=== PATIENT | female | born 1970 | race Caucasian/White ===

== ENCOUNTER 2021-10-12 16:12 | Outpatient (REF) | payer BC, SELFPAY ==
--- NOTE | ~2021-10-12 | MM_ITS ---
EXAMINATION: MM SCREENING DIGITAL BREAST TOMOSYNTHESIS, BILATERAL CLINICAL INFORMATION: Screening. Asymptomatic. The lifetime risk of breast cancer based on the Tyrer-Cuzick Model is 10%. COMPARISON: Mammography: 12/19/2017, 02/24/2013 TECHNIQUE: Digital breast tomosynthesis is performed in both the craniocaudal and mediolateral oblique views along with computer-aided detection (CAD). Synthesized 2D images are generated from the tomosynthesis. FINDINGS: There are scattered areas of fibroglandular density (ACR BI-RADS breast composition Category b). There are no significant masses, abnormal calcifications, or other abnormalities. Parenchymal pattern is similar to prior studies. No developing density. No significant change. MM/MM tomosynthesis screening BI IMPRESSION: No mammographic evidence of malignancy. ASSESSMENT: BI-RADS 1: Negative RECOMMENDATION: Routine annual mammography screening. This patient's information was entered into a reminder system with a target due date for their next mammogram.
== END 2021-10-12 16:13 | disposition home or self-care (01) ==
LOC: HO.MAMMO 16:12
PROVIDERS: Visit Provider Physician Assistant
DX: Z12.31 Encounter for screening mammogram for malignant neoplasm of breast (principal)
CPT/HCPCS: 77063; 77067

== ENCOUNTER 2022-02-07 16:11 | Outpatient (REF) | payer BC, SELFPAY ==
[2022-02-12 20:42] LABS: HPV mRNA E6/E7 rflx Not Detected (Not Detected)
== END 2022-02-07 16:12 | disposition home or self-care (01) ==
LOC: HO.LNP 16:11
PROVIDERS: Visit Provider Advanced Practice Midwife
DX: Z01.419 Encounter for gynecological examination (general) (routine) without abnormal findings (principal); Z11.51 Encounter for screening for human papillomavirus (HPV); N92.0 Excessive and frequent menstruation with regular cycle
CPT/HCPCS: 87624; 88142

== ENCOUNTER 2022-02-07 16:24 | Outpatient (REF) | payer BC, SELFPAY ==
[2022-02-07 17:03] LABS: Hematocrit 23.5 % (37.0-47.0); Mean Corpuscular HGB Conc 29.8 g/dl (31.0-35.0); Mean Corpuscular Volume 83.9 fL (80.0-98.0); Mean Platelet Volume 9.6 fL (9.4-12.3); Platelet Count 478 X10*3/uL (160-400); Red Cell Distribution Width 15.3 % (11.0-16.0); White Blood Count 5.9 X10*3/uL (4.8-10.8)
[2022-02-07 17:28] LABS: HCG Quantitative < 2 mIU/mL
[2022-02-08 06:21] LABS: CT PCR NOT DETECTED (Not Detect.); NG PCR NOT DETECTED (Not Detect.)
[2022-02-08 10:27] LABS: BV Int Neg Control Negative (Negative); BV Int Pos Control Positive (Positive)
== END 2022-02-07 16:25 | disposition home or self-care (01) ==
LOC: HO.LAB 16:24
PROVIDERS: Visit Provider Advanced Practice Midwife
DX: N92.1 Excessive and frequent menstruation with irregular cycle (principal); N93.9 Abnormal uterine and vaginal bleeding, unspecified; Z20.2 Contact with and (suspected) exposure to infections with a predominantly sexual mode of transmission; N90.1 Moderate vulvar dysplasia
CPT/HCPCS: 84443; 84702; 85027; 87480; 87491; 87510; 87591; 87660

== ENCOUNTER 2022-02-07 19:04 | Emergency (ER) | payer BC, SELFPAY | END 2022-02-07 21:03 | disposition left against medical advice (07) | PROVIDERS: Emergency Provider Emergency Medicine | DX: D64.9 Anemia, unspecified (principal) ==

== ENCOUNTER 2022-02-08 09:14 | Emergency (ER) | payer BC, SELFPAY ==
[2022-02-08] VITALS (9 sets, daily range): BP systolic 100–138; BP diastolic 56–86; PULSE 68–74; RESP 12–19; TEMP 36.6–37; O2SAT 94–100; BMI 31.2
[2022-02-08 10:43] LABS: MANUAL DIFF FLAG NO
[2022-02-08 10:44] LABS: Basophils Percent Auto 0.7 % (0-2); Eosinophils Absolute Auto 0.1 X10*3/uL (0.0-0.4); Eosinophils Percent Auto 3.1 % (0-4); Hematocrit 23.8 % (37.0-47.0); Imm Gran Abs Auto 0.01 X10*3/uL (0.00-0.03); Imm Gran Pct Auto 0.2 % (0.0-0.4); Lymphocytes Absolute Auto 1.3 X10*3/uL (1.2-4.9); Lymphocytes Percent Auto 27.4 % (20-40); Mean Corpuscular HGB Conc 29.4 g/dl (31.0-35.0); Mean Corpuscular Hemoglobin 24.7 pg (27.0-33.0); Mean Corpuscular Volume 84.1 fL (80.0-98.0); Mean Platelet Volume 8.6 fL (9.4-12.3); Monocytes Absolute Auto 0.4 X10*3/uL (0.1-1.2); Monocytes Percent Auto 8.3 % (2-11); Neutrophils Absolute Auto 2.8 x10*3/uL (2.0-8.3); Neutrophils Percent Auto 60.3 % (45-73); Platelet Count 419 X10*3/uL (160-400); Red Blood Count 2.83 X10*6/uL (4.20-5.50); Red Cell Distribution Width 15.2 % (11.0-16.0); White Blood Count 4.6 X10*3/uL (4.8-10.8)
[2022-02-08 11:00] LABS: Anion Gap 11 (12-20); Blood Urea Nitrogen 9 mg/dL (9-16); Calcium 8.6 mg/dL (8.4-10.2); Carbon Dioxide 25 mmol/L (22-29); Chloride 109 mmol/L (96-108); Creatinine Clr Calc Pharmacy 89.3; Estimated Glomerular Filt Rate > 60; Glucose Random 96 mg/dL (60-115); Potassium 4.6 mmol/L (3.3-5.1); Sodium 140 mmol/L (135-145)
--- NOTE | 2022-02-08 11:45 | ED.RECABL ---
HPI - Recheck/Abnormal Lab/Rx General Chief Complaint: Recheck/Abnormal Lab/Rx Stated Complaint: blood transfusion/sent by obgyn Time Seen by Provider: 02/08/22 11:08 Source: patient Mode of arrival: ambulatory Limitations: no limitations History of Present Illness HPI narrative: 52-year-old female who presents emergency department for evaluation of low hemoglobin and hematocrit. The patient was seen by her certified nurse commission for the blind director, Marlys Mari yesterday on 02/07/2022 for abnormal uterine bleeding with heavy menstruation. The patient had lab work drawn yesterday and was started on medroxyprogesterone 10 mg daily for her abnormal uterine bleeding. The patient was contacted today and informed that her H&H was low and that she should go to the emergency department for evaluation. The patient's H&H yesterday was 7.0 in 23.5. The patient states that she was getting monthly menstrual periods in the past however she had no menstrual period for approximately 5 months. She states that she started this menstrual period on 12/11/2021 and has been bleeding continually since then. Patient states that she soaks through 5 pads per day. She states that over the last month she has been feeling tired, weak and dizzy. She states that whenever she walks up stairs she developed a rapid heart rate and palpitations. Patient states that she was taking an iron supplement once a day. complaint: abnormal lab Initial visit (ago): day(s) (Yesterday) Returns today for: other (Severe anemia) Associated symptoms: shortness of breath (Dyspnea on exertion) and other (Weakness, fatigue, lightheadedness) Related Data Home Medications Medication Instructions Recorded Confirmed citalopram 40 mg tablet (Celexa) 40 mg PO DAILY 02/07/22 Previous Rx's Medication Instructions Recorded medroxyprogesterone 10 mg tablet 10 mg PO DAILY 30 days #30 tabs 02/07/22 (Provera) Allergies Allergy/AdvReac Type Severity Reaction Status Date / Time No Known Allergies Allergy Mild UNKNOWN Verified 02/07/22 15:43 Review of Systems Review of Systems: Yes all other systems are reviewed and are negative [facility] Past Medical History [facility] Narrative: Past medical history: Anxiety. Past surgical history: and tonsillectomy. Social history: She denies tobacco, alcohol and drug use. Medical History History of anxiety Surgical History Hx of section Hx of tonsillectomy Social History Social History Alcohol intake: never Patient Tobacco Use Status: Never used Tobacco Sexual orientation: Straight/Heterosexual Gender identity: Female Physical Exam Vital Signs: Vital Signs: Last Vital Signs Temp 98.6 F 02/08/22 15:22 Pulse 71 02/08/22 15:22 Resp 17 02/08/22 15:22 BP 126/74 02/08/22 15:22 Pulse Ox 94 02/08/22 14:35 O2 Del Method 02/08/22 14:35 BMI result Body Mass Index 31.2 Const: General: cooperative and no acute distress Orientation/consciousness: oriented to person and oriented to place Limitations: no limitations HEENT: Head: Yes normal to inspection, Yes normocephalic and Yes atraumatic Ears: external ears normal General nose exam: Normal external nose present Face and sinus: Yes normal facial exam Mouth: Normal oral and palatal mucosa present Throat: Yes posterior oropharynx normal Eyes: General: appearance normal, both eyes and all related structures Pupils: Equal, round and reactive pupils present Neck: Neck: Yes normal visual inspection, Yes no lymphadenopathy, Yes trachea midline and Yes supple Chest: Chest palpation & inspection: normal inspection of the chest and normal palpation of entire chest wall Resp: Effort & Inspection: normal respiratory effort and able to speak in complete sentences Auscultation: clear to auscultation bilaterally Cardio: Rate: regular rate Rhythm: regular rhythm Heart sounds: S1 normal heart sound present, S2 normal heart sound present and no murmurs GI: Inspection: Yes normal to inspection Palpation (GI): Soft to palpation, nontender and no guarding Auscultation: normal bowel sounds : General: Yes no CVA tenderness Back/Spine/Pelvis: Back: no CVA tenderness Skin: General skin exam: no rashes or lesions noted Neuro: General: oriented to person and oriented to place Cranial nerves: Yes CN's II-XII intact bilaterally and Yes Equal, round and reactive pupils present Cognition (Neuro): normal cognition Motor exam (neuro): 5/5 motor strength present throughout Extrem: General: Yes normal to inspection Psych: Appearance: grossly normal Speech and movement: Normal speech and movement present Affect: normal affect Attitude: cooperative Thought process: Normal thought process present Thought content: Normal thought content present Course Course Course Narrative: 52-year-old female who presents emergency department for evaluation of abnormal blood work (severe anemia) detected on blood work that was done yesterday for a workup of abnormal uterine bleeding with heavy menstruation over a 2 month. Patient's physical examination today was unremarkable. Patient's repeat H&H was 723.8 which confirms that she is anemic. She had a normal MCV but I do believe that her anemia is caused by menstrual blood loss and iron deficiency. I did discuss this with the patient. Patient was ordered to get transfused 2 units of packed red blood cells, each unit over 2 hours. The patient will then be discharged on iron 3 times a day for 2 months. She will need follow with her PCP to follow her anemia. 1603: The patient completed her 1st unit of packed red blood cells and she is feeling better. She is currently getting her 2nd unit of packed red blood cells. Once this is completed she will be discharged home with printed and verbal instructions. MDM - Recheck/Abnormal Lab/Rx Lab Data Result diagrams: 02/08/22 10:38 02/08/22 10:38 Labs: Lab Results 02/08/22 02/08/22 02/08/22 Range/Units 10:38 10:38 11:38 WBC 4.6 L (4.8-10.8) X10*3/uL RBC 2.83 L (4.20-5.50) X10*6/uL Hgb 7.0 L* (12.0-16.0) g/dl Hct 23.8 L (37.0-47.0) % MCV 84.1 (80.0-98.0) fL MCH 24.7 L (27.0-33.0) pg MCHC 29.4 L (31.0-35.0) g/dl RDW 15.2 (11.0-16.0) % Plt Count 419 H (160-400) X10*3/uL MPV 8.6 L (9.4-12.3) fL Immature Gran % (Auto) 0.2 (0.0-0.4) % Neut % (Auto) 60.3 (45-73) % Lymph % (Auto) 27.4 (20-40) % Vernon % (Auto) 8.3 (2-11) % Eos % (Auto) 3.1 (0-4) % Baso % (Auto) 0.7 (0-2) % Lymph # (Auto) 1.3 (1.2-4.9) X10*3/uL Vernon # (Auto) 0.4 (0.1-1.2) X10*3/uL Eos # (Auto) 0.1 (0.0-0.4) X10*3/uL Baso # (Auto) 0.0 (0.0-0.2) X10*3/uL Abs Immat Gran (auto) 0.01 (0.00-0.03) X10*3/uL Absolute Neuts (auto) 2.8 (2.0-8.3) x10*3/uL Absolute Nucleated RBC 0.000 (0.0-0.012) X10*3/uL Nucleated RBC % (auto) 0.0 (0.0-0.2) /100WBC Sodium 140 (135-145) mmol/L Potassium 4.6 (3.3-5.1) mmol/L Chloride 109 H (96-108) mmol/L Carbon Dioxide 25 (22-29) mmol/L Anion Gap 11 L (12-20) BUN 9 (9-16) mg/dL Creatinine 0.67 (0.5-1.4) mg/dL Estim Creat Clear Calc 89.3 Estimated GFR > 60 Random Glucose 96 (60-115) mg/dL Calcium 8.6 (8.4-10.2) mg/dL Blood Type A Negative Antibody Screen NEGATIVE Crossmatch See Detail Discharge Plan Discharge Clinical Impression: Anemia, Dysfunctional uterine bleeding Patient Disposition: Home, Self-Care Instructions: Iron Deficiency Anemia (ED) Additional Instructions: Your hematocrit and hemoglobin were low. Your hemoglobin was 7 (normal range 12 to 16). Your hematocrit was 23.8 % (normal range 37-47%). The most likely cause of your anemia was blood loss from your dysfunctional uterine bleeding. When you lose a lot of blood over a period of time, this make you iron deficient and without iron your body cannot make new red blood cells. When your body is iron deficient you often need a higher dose of iron inorder to replete the iron stores so your body so that your bone marrow can make more red blood cells. Take ferrous sulfate 325 mg pills, 1 pill 3 times a day for 2 months. Continue to take the medroxyprogesterone prescribed by your mixing pan tender provider and follow-up with this provider as scheduled Please return to the emergency department if your symptoms get worse or if you develop any symptoms that are concerning to you. Prescriptions: No Action medroxyprogesterone [Provera] 10 mg tablet 10 mg PO DAILY 30 Days Qty: 30 3RF Rx Instructions: start Provera 1 tablet daily citalopram [Celexa] 40 mg tablet 40 mg PO DAILY
--- NOTE | 2022-02-12 14:53 | PC.NURSE ---
Blood transfusion ended at around 1720. Vital signs documented
== END 2022-02-08 18:01 | disposition home or self-care (01) ==
PROVIDERS: Emergency Provider Emergency Medicine Emergency Medical Services
DX: D64.9 Anemia, unspecified (principal); N93.8 Other specified abnormal uterine and vaginal bleeding; Z79.899 Other long term (current) drug therapy
CPT/HCPCS: 36415; 80048; 85025; 86850; 86900; 86901; 86923; 99284; 99285; P9016

== ENCOUNTER 2022-02-12 11:07 | Outpatient (REF) | payer BC, SELFPAY ==
--- NOTE | ~2022-02-12 | US_ITS ---
EXAMINATION: US PELVIS CLINICAL INFORMATION: N92.0 - Excessive and frequent menstruation with regular cycle. Age 52. LMP 12/11/2021 (heavy and ongoing since). COMPARISON: Pelvic ultrasound 05/04/2019 TECHNIQUE: Ultrasound of the pelvis is performed using both transabdominal and transvaginal transducers along with Doppler. Transvaginal imaging is performed due to inadequate visualization transabdominally. FINDINGS: Uterus: The uterus is anteverted and measures 9.8 x 4.9 x 6.7 cm. Volume 168 mL. The double wall endometrial thickness ranges 1.2-1.5 cm. The posterior side of the endometrium is heterogeneous and there is some increased color flow noted in this area. This could suggest underlying polyp. The uterine surface is smooth. There is no visible fibroid. A nabothian cyst in the cervix measures 1.0 x 0.6 cm. Adnexa: Both ovaries are visualized. There is normal color flow to the adnexa. There is no ovarian torsion. There is no pelvic ascites or fluid collection. Right ovary measures 3.4 x 1.7 x 2.2 cm. Volume 7.0 mL. Dominant follicle in right ovary measures under 1.5 cm. Left ovary measures 2.9 x 1.6 x 1.8 cm. Volume 4.5 mL. US/US pelvic and transvaginal IMPRESSION: Uterus: -Endometrial double wall thickness 1.2-1.5 cm. Posterior side heterogeneous with increased color flow. Possibility of an underlying polyp cannot be excluded. -No visible fibroid. Adnexa: -No adnexal mass or ascites. Dominant follicle on right under 1.5 cm.
[2022-02-12 12:08] LABS: Hematocrit 33.3 % (37.0-47.0); Hemoglobin 10.5 g/dl (12.0-16.0); Mean Corpuscular HGB Conc 31.5 g/dl (31.0-35.0); Mean Corpuscular Hemoglobin 26.9 pg (27.0-33.0); Mean Corpuscular Volume 85.4 fL (80.0-98.0); Mean Platelet Volume 9.7 fL (9.4-12.3); Platelet Count 470 X10*3/uL (160-400); Red Cell Distribution Width 15.5 % (11.0-16.0); White Blood Count 5.6 X10*3/uL (4.8-10.8)
== END 2022-02-12 11:08 | disposition home or self-care (01) ==
LOC: HO.US 11:07
PROVIDERS: PCP Obstetrics & Gynecology; Visit Provider Advanced Practice Midwife
DX: R93.9 Diagnostic imaging inconclusive due to excess body fat of patient (principal); R92.0 Mammographic microcalcification found on diagnostic imaging of breast
CPT/HCPCS: 36415; 76830; 76856; 85027

== ENCOUNTER 2022-02-13 12:23 | Day surgery (SDC) | payer BC, SELFPAY ==
[2022-02-13] VITALS (11 sets, daily range): BP systolic 96–161; BP diastolic 62–88; PULSE 61–76; RESP 16–22; TEMP 36.2–37.1; O2SAT 98–100; BMI 31.2
--- NOTE | 2022-02-13 13:27 | MHC.SHP ---
Pre-Procedural Eval Section A Date of Service: 02/13/22 The patient is an INPATIENT: No Changes since office visit: No Cold of Flu in the past 2 weeks, No New Medical Problems, No Changes in Medication and No Patient answered all questions The History & Physical has been completed within 30 days and I have reviewed it.: Yes Section B Chief Complaint: Abnormal uterine and vaginal bleeding, unspecified Allergies: Allergies Allergy/AdvReac Type Severity Reaction Status Date / Time No Known Allergies Allergy Mild UNKNOWN Verified 02/13/22 12:35 Plan Diagnosis/Plan: Unchanged I have reviewed the history and physical and performed a pertinent physical examination on my patient. No changes have occurred unless specified.
[2022-02-13 13:29] LABS: UPreg QC Valid YES; Urine Pregnancy NEGATIVE (NEGATIVE)
--- NOTE | 2022-02-13 13:31 | P.CONAN_ITS ---
[facility] Active Problems Active Problems: All Active Problems (Updated 02/12/22 @ 13:06 by He Lackey MD) Heavy menstrual bleeding (Acute) Abnormal uterine bleeding (AUB) (Acute) Encounter for annual routine gynecological examination (Acute) Past Medical History Medical History History of anxiety Surgical History Surgical History Hx of section Hx of tonsillectomy History of Problems with Anesthesia: No Social History Social History Alcohol intake: never Patient Tobacco Use Status: Never used Tobacco Use of substances other than those prescribed or required for medical reasons: Yes Substance Use Frequency: Occasionally Are you DNR?: No Advance Directives: No Advance Directives Information Provided: Yes Sexual orientation: Straight/Heterosexual Gender identity: Female Meds Allergies Allergy/AdvReac Type Severity Reaction Status Date / Time No Known Allergies Allergy Mild UNKNOWN Verified 02/13/22 12:35 Home Medications Medication Instructions Recorded Confirmed Last Taken Type citalopram 40 mg tablet (Celexa) 40 mg PO DAILY 02/07/22 02/13/22 Unknown History iron 1 tab PO TID 02/13/22 02/13/22 02/12/22 History Exam Exam Date and Time: February 13, 2022 1331 Height,Weight and Vital Signs: Height 5 ft Weight 72.575 kg Last Vital Signs Temp 98.7 F 02/13/22 12:41 Pulse 75 02/13/22 12:41 Resp 16 02/13/22 12:41 BP 113/62 02/13/22 12:41 Pulse Ox 99 02/13/22 12:41 O2 Del Method 02/13/22 12:41 Pertinent Lab Results Pertinent Lab Results: Laboratory Tests 02/13/22 13:12 Urine Test NEGATIVE Airway Mallampati Class: II (Small mouth) TM Dist: >3cm Neck ROM: Full Loose/Missing/Broken Teeth: No Heart: RRR Lungs: CYA Assessment and Plan Assessment Anesthesia Assessment: Anesthesia Plan Discussed and Chart Reviewed Final Anesthetic Review History of Problems with Anesthesia: No NPO: Yes ASA Class: II Final Preanesthetic Review: Meds/Allgs Chart Reviewed, Consent Obtained/Reviewed and Anes Risks/Benef Reviewed Patient Risk: Low Procedure Risk: Low Anesthetic Plan Anesthetic Plan: GA Disposition: Standard PACU
[2022-02-13] MEDS: Lactated Ringers 1,000 ML 50 ML IVCONT (14:21)
--- NOTE | 2022-02-13 14:34 | PM.OP ---
Brief Operative Note Date of Service: 02/13/22 Pre-op diagnosis: Abnormal uterine bleeding Post-op diagnosis: same (Normal endometrial cavity) Procedure: Hysteroscopy D&C, Mirena IUD insertion Surgeon: He Lackey MD Anesthesia: GLMA Was an Development Coordinator used for this Procedure?: No Estimated blood loss (mL): 0 Pathology: other (Endometrial Scrapping. ) Condition: stable Disposition: PACU
--- NOTE | 2022-02-13 14:35 | P.OP_ITS ---
Operative Note Operative Note Date of Service: 02/13/22 Narrative: Preop Diagnosis: Abnormal uterine bleeding Operation: Diagnostic Hysteroscopy, Dilataion & Curettage , Mirena IUD insertion Post Op Diagnosis: Normal endometrial and endocervical cavity, no evidence of pathology QBL: Minimal Anesthesia: GLMA Surgeon: He Lackey MD Business Continuity Analyst: None Complication: None Pathology: Endometrial Scrapings Procedure: The patient was put in the dorsal lithotomy position, scrubbed, and draped in the usual manner. A sterile speculum was inserted in the patient's vagina. The anterior lip of the cervix was grasped with a single tooth tenaculum. The cervix was dilated up to 5 mm, then the scope was inserted in the patient's uterus. Inspection revealed normal endocervical & endometrial cavity with no evidence of pathology. The scope was taken out of the uterine cavity , then sharp curetting was carried on with no complications. A sound was advanced through the external and internal os until it reached the fundus of the uterus, the depth was 9 cm. The sound was then withdrawn. The IUD was loaded in a sterile manner and advanced into position. The string was visualized and cut to 3 cm. Tenaculum site hemostatic. At the end of the procedure, all instruments were taken out of the patient uterine and vaginal cavity. The single tooth tenaculum was removed and homeostasis was assured using pressure. The patient tolerated the procedure well and was transferred to the PACU in a stable condition.
[2022-02-13] MEDS: oxyCODONE HCl Immed Release 5 MG TABLET PO (15:04)
[2022-02-13] MEDS: ondansetron HCL 4 MG/2 ML VIAL IVPUSH (15:14)
[2022-02-13] MEDS: fentaNYL citrate/PF 100 MCG/2 ML VIAL 25 MCG IVPUSH (15:40)
== END 2022-02-13 17:00 | disposition home or self-care (01) ==
PROVIDERS: Visit Provider Obstetrics & Gynecology
PROC: 0UDB8ZZ Extraction of Endometrium, Via Natural or Artificial Opening Endoscopic (ICD-10-PCS; CPT 58558; principal; 2022-02-13 14:00)
DX: N93.9 Abnormal uterine and vaginal bleeding, unspecified (principal); N88.8 Other specified noninflammatory disorders of cervix uteri
CPT/HCPCS: 58558; 58300; 81025; 88305; J1100; J1885; J2250; J2405; J2550; J3010

== ENCOUNTER 2022-03-13 08:21 | Outpatient (REF) | payer BC, SELFPAY | END 2022-03-13 08:22 | disposition home or self-care (01) | LOC: HO.LNP 08:21 | PROVIDERS: Visit Provider Obstetrics & Gynecology | DX: R87.615 Unsatisfactory cytologic smear of cervix (principal); Z32.02 Encounter for pregnancy test, result negative; Z30.431 Encounter for routine checking of intrauterine contraceptive device | CPT/HCPCS: 81025; 88142 ==

== ENCOUNTER 2022-05-27 11:38 | Outpatient (REF) | payer BC, SELFPAY ==
[2022-05-27 11:58] LABS: Hematocrit 45.8 % (37.0-47.0); Hemoglobin 15.4 g/dl (12.0-16.0); Mean Corpuscular HGB Conc 33.6 g/dl (31.0-35.0); Mean Corpuscular Hemoglobin 28.9 pg (27.0-33.0); Mean Corpuscular Volume 85.9 fL (80.0-98.0); Mean Platelet Volume 9.2 fL (9.4-12.3); Platelet Count 317 X10*3/uL (160-400); Red Blood Count 5.33 X10*6/uL (4.20-5.50); Red Cell Distribution Width 15.5 % (11.0-16.0); White Blood Count 6.9 X10*3/uL (4.8-10.8)
== END 2022-05-27 11:39 | disposition home or self-care (01) ==
LOC: HO.LAB 11:38
PROVIDERS: Visit Provider Obstetrics & Gynecology
DX: N93.9 Abnormal uterine and vaginal bleeding, unspecified (principal)
CPT/HCPCS: 36415; 85027

== ENCOUNTER → 2022-05-30 13:58 | Outpatient (BNVA) | payer BC, SELFPAY | PROVIDERS: Visit Provider Obstetrics & Gynecology | DX: Z13.89 Encounter for screening for other disorder (principal) ==

== ENCOUNTER 2023-05-20 10:13 | Outpatient (REF) | payer BC, SELFPAY | END 2023-05-20 10:14 | disposition home or self-care (01) | LOC: HO.MAMMO 10:13 | PROVIDERS: Visit Provider Obstetrics & Gynecology | DX: Z12.31 Encounter for screening mammogram for malignant neoplasm of breast (principal) | CPT/HCPCS: 77063; 77067 ==

== ENCOUNTER → 2023-05-20 10:15 | Outpatient (BNV) | payer BC, SELFPAY | PROVIDERS: Visit Provider Radiology Diagnostic Radiology | DX: Z12.31 Encounter for screening mammogram for malignant neoplasm of breast (principal) | CPT/HCPCS: 77063; 77067 ==

== ENCOUNTER 2023-05-20 10:46 | Outpatient (AMB) | payer BC, SELFPAY ==
--- NOTE | 2023-05-20 11:02 | A.OFFVIS_ITS ---
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 No complaints. 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 Sexually active: Yes Sexual orientation: Straight/Heterosexual Gender identity: Female Female Reproductive History Menstrual Total pregnancies: 2 Full term: 2 Number of Living Children: 2 Date of last pap smear: 03/14/22 Date of Mammogram: 05/20/23 Review of Systems Const All systems reviewed & are unremarkable except as noted in HPI and below Card Reports as per HPI Resp Reports as per HPI GI Reports as per HPI and Reports no additional complaints Reports as per HPI Physical Exam Vital Signs: Last Vital Signs BP 120/74 05/20/23 11:03 BMI result Body Mass Index 33.2 Const General: cooperative, healthy appearing and comfortable Chest Chest palpation & inspection: normal inspection of the chest and normal palpation of entire chest wall Breast/axilla inspection: normal inspection of the breasts and normal inspection of the axillae Breast/axilla palpation: normal palpation of the breasts, normal palpation of the axillae and no axillary lymphadenopathy Resp Effort & Inspection: normal respiratory effort Auscultation: clear to auscultation bilaterally Percussion: percussion normal Cardio Palpation: normal PMI Rate: regular rate Rhythm: regular rhythm Heart sounds: no murmurs and no rubs Peripheral pulses: Peripheral pulses 2+ throughout GI Inspection: Yes normal to inspection Palpation (GI): Soft to palpation, nontender, no guarding, not rigid and No hepatosplenomegaly present Percussion: Yes normal to percussion Auscultation: normal bowel sounds Rectal Exam - Female: deferred General: Yes bladder normal to palpation External Female Exam: No lesion Speculum Exam - Vagina: normal appearance of the vagina, normal palpation, normal vaginal discharge and not erythematous Speculum Exam - Cervix: normal appearance of the cervix and normal palpation Bimanual exam- vagina & uterus: normal bimanual exam, normal palpation, uterine size normal, bladder normal to palpation, consistency normal and normal palpation Bimanual Exam- Adnexa, other: normal adnexae, no masses and no tenderness Assessment & Plan Assessment & Plan (1) Well woman exam: Code(s): Z01.419 - Encounter for gynecological examination (general) (routine) without abnormal findings Plan: Co testing not indicated this year. Counseled the patient about the recommended dietary allowance of 1200 mg of Calcium & 600 IU of vitamin D. Instructions given the patient to schedule next screening Mammogram in 05/28. The patient scheduled with GI in 08/26 for a consult regarding screening colonoscopy . The patient was instructed to perform monthly self-breast exams and schedule annual exam in a year. All questions answered and the patient verbalized understanding. Coding Level of Care Code Est Pt Prev Care 40-64y(46675) Diagnoses Well woman exam Z01.419
[2023-05-20 11:03] VITALS: BP 120/74; BMI 33.2
== END 2023-05-20 11:24 | disposition home or self-care (01) ==
LOC: HO.HWS 10:46
PROVIDERS: Visit Provider Obstetrics & Gynecology
DX: Z01.419 Encounter for gynecological examination (general) (routine) without abnormal findings (principal)
CPT/HCPCS: 99396

== ENCOUNTER 2023-06-18 08:10 | Outpatient (REF) | payer BC, SELFPAY | END 2023-06-18 08:11 | disposition home or self-care (01) | LOC: HO.LNP 08:10 | PROVIDERS: Visit Provider Obstetrics & Gynecology | DX: N90.89 Other specified noninflammatory disorders of vulva and perineum (principal); N90.7 Vulvar cyst | CPT/HCPCS: 56605; 56606; 88304 ==

== ENCOUNTER 2023-06-18 08:10 | Outpatient (AMB) | payer BC, SELFPAY ==
[2023-06-18 08:12] VITALS: BMI 33.1
--- NOTE | 2023-06-18 08:12 | A.OFFVIS_ITS ---
Intake Vital Signs 06/18/23 08:12 Height 5 ft Weight 169 lb 12.095 oz BMI 33.1 Intake Visit Reasons: cyst on labia Industrial Millwright Required: No Information Interpreted: non-clinical & clinical Inspector Conveyor Line: Inspector Conveyor Line Present (Delaney Young LETY) Accompanied by: Self / Same As Patient Allergies No Known Allergies Allergy (Mild, Verified 06/18/23 08:22) UNKNOWN HPI HPI Comments History of Present Illness Details Presenting complaining of new onset to left vulvar cyst that are tender [facility] Medical History History of anxiety Surgical History Hx of section Hx of tonsillectomy Social History Household Members: Children Housing: House Alcohol intake: current Alcohol intake frequency: a few times a month Comment: previously medicated with oxycodone and fentanyl Patient Tobacco Use Status: Never used Tobacco Current occupational status: employed 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 Sexual orientation: Straight/Heterosexual Gender identity: Female Female Reproductive History Menstrual Date of last menstrual period: 05/19/23 control method: progestin IUCD Review of Systems Const All systems reviewed & are unremarkable except as noted in HPI and below Physical Exam Vital Signs: BMI result Body Mass Index 33.1 General: Yes no CVA tenderness External Female Exam: normal appearance of the urethra and other (Left upper labia minora 2 cysts 0.5 cm each) Speculum Exam - Vagina: normal appearance of the vagina, normal palpation, no lesions and no masses Speculum Exam - Cervix: normal appearance of the cervix, normal palpation, no lesions, no masses and nontender Bimanual exam- vagina & uterus: normal bimanual exam, normal palpation, uterine size normal, normal palpation, uterine shape normal, No Cervical tenderness present and non-tender Bimanual Exam- Adnexa, other: normal adnexae Back/Spine/Pelvis Back: no CVA tenderness Office Procedures REPLENISHMENT BUYER Biopsy Before the procedure was started d/w patient the procedure, alternatives (do nothing, medical rx), & all the risks associated with the procedure ( bleeding , infection, vulvar scarring, painful intercourse, injury to vessels, possible need for transfusion with all its risks) then patient signed the consent. Preoperative diagnosis: Vulvar Abscess. Operation: Left labia minora upper cyst I & D and left labia minora lower cyst excision Post-operative diagnosis: Same Anesthesia: Lidocaine 1% 3cc used Procedure: The skin was prepped with Betadine, palpation was used for guidance, 11-blade was used to incise the skin contiguous with the upper labia minora cyst. This yielded 1 cc of fluid &substantially decompressed the swelling, a clean dressing was used at the end. Then attention was turned to the lower left labia minora cyst using a pickup and scissors, it was excised. Pressure was used for hemostasis The patient tolerated the procedure well. The patient was sent home in stable condition. Discharge Instructions: The patient was instructed to call if temp>100.4, abdominal pain, nausea/vomiting. This note was generated with a voice recognition program. Some errors may have been overlooked during the review of this note. Sometimes these errors may affect the content or meaning of a given sentence. 89132-Lfzugw of Vulva/Perineum 72492-Pnpevv of Vulva/Perineum, additional site Procedure code (CPT) selection complete Assessment & Plan Assessment & Plan (1) Labial cyst: Comment: Upper labia minorax2 Code(s): N90.7 - Vulvar cyst Plan: Discussed with the patient the finding on pelvic exam showing 2 labia minora cysts, recommended I&D of the upper 1 and excision of the lower 1, the patient agreed, see procedure note Orders: Orders Surgical Today N90.89 - Other specified noninflammatory disorders of vulva and perineum AMB REPLENISHMENT BUYER Biopsy Today N90.7 - Vulvar cyst Coding Level of Care Code Est Pt Level 3 (07580) Procedure Only Diagnoses Labial cyst N90.7 CPT Codes REPLENISHMENT BUYER Biopsy - CPT: 46615-Ltijpj of Vulva/Perineum ([id number]) REPLENISHMENT BUYER Biopsy - CPT: 15390-Auezwz of Vulva/Perineum, additional site ([id number])
== END 2023-06-18 10:01 | disposition home or self-care (01) ==
LOC: HO.HWS 08:10
PROVIDERS: Visit Provider Obstetrics & Gynecology
DX: N90.7 Vulvar cyst (principal)
CPT/HCPCS: 56605; 56606; 99213

== ENCOUNTER 2023-07-10 10:30 | Outpatient (AMB) | payer BC, SELFPAY ==
--- NOTE | 2023-07-10 10:45 | A.OFFVIS_ITS ---
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 The pathology showed the following: Skin with features of Bartholin cyst; no atypia or malignancy identified. 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 Discussed with the patient options of treatment I&D versus wait for her spontaneous resolution all pros and cons, risks and benefits of each approach were discussed with the patient, the patient decided to proceed with expectant management. Instructions given the patient to call in case of increase in the area redness, increase in the size or pain, temperature above 100.4, then will proceed with I&D. All questions answered, the patient verbalized understanding Coding Level of Care Code Est Pt Level 3 (04748) Diagnoses Vulvar hematoma N90.89
[2023-07-10 10:48] VITALS: BP 124/80; BMI 33.1
== END 2023-07-10 11:03 | disposition home or self-care (01) ==
LOC: HO.HWS 10:31
PROVIDERS: Visit Provider Obstetrics & Gynecology
DX: N90.89 Other specified noninflammatory disorders of vulva and perineum (principal)
CPT/HCPCS: 99213

== ENCOUNTER → 2023-07-10 10:30 | Outpatient (BNVA) | payer BC, SELFPAY | PROVIDERS: Visit Provider Obstetrics & Gynecology ==

== ENCOUNTER 2024-06-22 09:01 | Outpatient (AMB) | payer BC, SELFPAY ==
--- NOTE | 2024-06-22 09:06 | A.OFFVIS_ITS ---
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 Complaint of an episode of vaginal bleeding after few months of amenorrhea Last Pap/HPV was negative in 03/26 Last Mammogram was BI-RADS 1 in 05/28, the patient is scheduled today for a screening mammogram Last Colonoscopy was in October of 2023, the recommendation according to the patient is to repeat in 10 years, no records available [facility] Medical History History of anxiety Surgical History Hx of section Hx of tonsillectomy Social History Household Members: Children Housing: House Alcohol intake: current Alcohol intake frequency: a few times a month Comment: previously medicated with oxycodone and fentanyl Patient Tobacco Use Status: Never used Tobacco Current occupational status: employed 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 Sexual orientation: Straight/Heterosexual Gender identity: Female Female Reproductive History Menstrual Date of last pap smear: 03/14/22 Date of Mammogram: 05/20/23 Review of Systems Const All systems reviewed & are unremarkable except as noted in HPI and below Card Reports as per HPI Resp Reports as per HPI GI Reports as per HPI and Reports no additional complaints Reports as per HPI Physical Exam Vital Signs: Last Vital Signs BP 122/84 06/22/24 09:27 BMI result Body Mass Index 32.4 Const General: cooperative, healthy appearing and comfortable Chest Chest palpation & inspection: normal inspection of the chest and normal palpation of entire chest wall Breast/axilla inspection: normal inspection of the breasts and normal inspection of the axillae Breast/axilla palpation: normal palpation of the breasts, normal palpation of the axillae and no axillary lymphadenopathy Resp Effort & Inspection: normal respiratory effort Auscultation: clear to auscultation bilaterally Percussion: percussion normal Cardio Palpation: normal PMI Rate: regular rate Rhythm: regular rhythm Heart sounds: no murmurs and no rubs Peripheral pulses: Peripheral pulses 2+ throughout GI Inspection: Yes normal to inspection Palpation (GI): Soft to palpation, nontender, no guarding, not rigid and No hepatosplenomegaly present Percussion: Yes normal to percussion Auscultation: normal bowel sounds Rectal Exam - Female: deferred General: Yes bladder normal to palpation External Female Exam: No lesion Speculum Exam - Vagina: normal appearance of the vagina, normal palpation, normal vaginal discharge and not erythematous Speculum Exam - Cervix: normal appearance of the cervix and normal palpation Bimanual exam- vagina & uterus: normal bimanual exam, normal palpation, uterine size normal, bladder normal to palpation, consistency normal and normal palpation Bimanual Exam- Adnexa, other: normal adnexae, no masses and no tenderness Assessment & Plan Assessment & Plan (1) Well woman exam: Code(s): Z01.419 - Encounter for gynecological examination (general) (routine) without abnormal findings Category: Medical Plan: Co testing not indicated this year. Counseled the patient about the recommended dietary allowance of 1200 mg of Calcium & 600 IU of vitamin D. Mammogram scheduled today. The patient was instructed to perform monthly self-breast exams and schedule annual exam in a year. All questions answered and the patient verbalized understanding. (2) Postmenopausal bleeding: Code(s): N95.0 - Postmenopausal bleeding Category: Medical Plan: Discussed with the patient the differential diagnosis of post menopausal bleeding with normal pelvic exam including but not limited to, endometrial hyperplasia, cancer, polyps and other causes; co testing done, recommended ultrasound to measure the endometrial stripe; discussed with the patient that if the endometrial thickness is 4 mm or less the negative predictive value of endometrial pathology is 99%, otherwise If endometrial thickness is more than 4 mm will proceed with endometrial sampling versus hysteroscopy D&C polypectomy depending on the ultrasound findings. Instructed the patient to schedule an ultrasound with a follow-up appointment in 2 weeks. All questions answered, the patient verbalized understanding and agreed with the plan. This note was generated with a voice recognition program. Some errors may have been overlooked during the review of this note. Sometimes these errors may affect the content or meaning of a given sentence. Orders: Orders US pelvic and transvaginal Today N95.0 - Postmenopausal bleeding Coding Level of Care Code Est Pt Prev Care 40-64y(34662) Diagnoses Well woman exam Z01.419 Postmenopausal bleeding N95.0
[2024-06-22 09:27] VITALS: BP 122/84; BMI 32.4
== END 2024-06-22 09:52 | disposition home or self-care (01) ==
LOC: HO.HWS 09:01
PROVIDERS: Visit Provider Obstetrics & Gynecology
DX: Z01.419 Encounter for gynecological examination (general) (routine) without abnormal findings (principal); N95.0 Postmenopausal bleeding
CPT/HCPCS: 99396; 99459

== ENCOUNTER 2024-06-22 09:50 | Outpatient (REF) | payer BC, SELFPAY | END 2024-06-22 09:51 | disposition home or self-care (01) | LOC: HO.MAMMO 09:50 | PROVIDERS: Visit Provider Obstetrics & Gynecology | DX: Z12.31 Encounter for screening mammogram for malignant neoplasm of breast (principal) | CPT/HCPCS: 77063; 77067 ==

== ENCOUNTER → 2024-06-22 10:00 | Outpatient (BNV) | payer BC, SELFPAY | PROVIDERS: Visit Provider Internal Medicine | DX: Z12.31 Encounter for screening mammogram for malignant neoplasm of breast (principal) | CPT/HCPCS: 77063; 77067 ==

== ENCOUNTER 2024-07-15 16:19 | Outpatient (REF) | payer BC, SELFPAY ==
--- NOTE | ~2024-07-15 | US_ITS ---
EXAMINATION: US PELVIS TRANSABDOMINAL AND TRANSVAGINAL HISTORY: N95.0 - Postmenopausal bleeding COMPARISON: Comparison is made with the prior examination dated 02/12/2022. TECHNIQUE: Transabdominal and endovaginal real-time 2D ferraro-scale ultrasound was performed. FINDINGS: Uterus: The uterus is normal in size, measuring 8.2 x 3.7 x 4.8 cm. Myometrium has a normal echotexture. No fibroids are identified. Endometrium: The endometrial stripe measures 3 mm in thickness. An IUD is noted in appropriate position. There are nabothian cysts in the cervix. Right ovary: The right ovary measures 2.9 x 2.1 x 1.7 cm. The right ovary is normal in size and echotexture. There is a 1.8 x 1.5 x 1.3 cm cyst versus follicle. Left ovary: The left ovary measures 1.4 x 0.6 x 1.3 cm. The left ovary is normal in size and echotexture. Pelvic fluid: none. US/US pelvic and transvaginal IMPRESSION: 1. IUD in appropriate position in the endometrial cavity. 2. 1.8 x 1.5 x 1.3 cm right ovarian cyst versus follicle. Electronically signed by: Skyler Alvarenga MD 07/16/2024 07:50 AM EDT
== END 2024-07-15 16:20 | disposition home or self-care (01) ==
LOC: HO.US 16:19
PROVIDERS: Visit Provider Obstetrics & Gynecology
DX: N95.0 Postmenopausal bleeding (principal)
CPT/HCPCS: 76830; 76856

== ENCOUNTER → 2024-07-15 16:20 | Outpatient (BNV) | payer BC, SELFPAY | PROVIDERS: Visit Provider Radiology Diagnostic Radiology | DX: N83.291 Other ovarian cyst, right side (principal); Z97.5 Presence of (intrauterine) contraceptive device | CPT/HCPCS: 76830; 76856 ==

== ENCOUNTER 2024-08-18 11:29 | Outpatient (AMB) | payer BC, SELFPAY ==
--- NOTE | 2024-08-18 11:29 | MHC.OFFVIS ---
Intake Visit Reasons: Ultra sound follow up Industrial Therapist Required: No Information Interpreted: non-clinical & clinical Allergies No Known Allergies Allergy (Mild, Verified 06/22/24 09:31) UNKNOWN HPI Comments Details: The patient is scheduled a telehealth visit for ultrasound follow-up regarding postmenopausal bleeding. Pelvic ultrasound done recently showed the following: Uterus: The uterus is normal in size, measuring 8.2 x 3.7 x 4.8 cm. Myometrium has a normal echotexture. No fibroids are identified. Endometrium: The endometrial stripe measures 3 mm in thickness. An IUD is noted in appropriate position. There are nabothian cysts in the cervix. Right ovary: The right ovary measures 2.9 x 2.1 x 1.7 cm. The right ovary is normal in size and echotexture. There is a 1.8 x 1.5 x 1.3 cm cyst versus follicle. Left ovary: The left ovary measures 1.4 x 0.6 x 1.3 cm. The left ovary is normal in size and echotexture. Pelvic fluid: none. 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 Sexual orientation: Straight/Heterosexual Gender identity: Female Review of Systems Const All systems reviewed & are unremarkable except as noted in HPI and below Reports as per HPI and Reports no additional complaints GI Reports no additional complaints Reports no additional complaints Telehealth Telehealth Telehealth Platform: Telephone Location of provider rendering services: practice address Location of patient: address on file Patient Identification confirmed using: Name, : Yes Telehealth method: video Patient verbally consented to treatment: Yes Patient verbally consented to billing insurance company: Yes Patient informed of any privacy concerns related to visit: Yes Minutes spent on Phone/Video with Pt.: 10 Assessment & Plan Assessment & Plan (1) Postmenopausal bleeding: Code(s): N95.0 - Postmenopausal bleeding Category: Medical Plan: Discussed with the patient the results of the pelvic ultrasound showing an endometrial stripe thickness of 3 mm. Explained to the patient with an endometrial stripe of 4 mm &/or less, there is a high negative predictive value in detecting endometrial pathology including endometrial hyperplasia, polyps or malignancy. Therefore, there is no indication for endometrial sampling. Discussed with the patient the sensitivity, specificity, and positive and the negative predictive value of using ultrasound in detecting endometrial pathology. FSH/LH ordered, recommended to the patient Mirena IUD removal to be scheduled within 2 weeks. The patient was instructed to call if bleeding recurs, will proceed with endometrial sampling out endometrial pathology. All questions were answered and the patient verbalized understanding and agreed with the plan. I spent a total of 20 minutes reviewing the chart, talking to the patient via video and documenting in the medical record. Orders: Orders Lutenizing Hormone Today N91.2 - Amenorrhea, unspecified Follicle Stimulating Hormone Today N91.2 - Amenorrhea, unspecified Coding Level of Care Code Est Pt Level 3 (34134) Diagnoses Postmenopausal bleeding N95.0
== END 2024-08-18 11:58 | disposition home or self-care (01) ==
LOC: HO.HWS 11:29
PROVIDERS: Visit Provider Obstetrics & Gynecology
DX: N95.0 Postmenopausal bleeding (principal)
CPT/HCPCS: 99213

== ENCOUNTER → 2024-08-18 11:29 | Outpatient (BNVA) | payer BC, SELFPAY | PROVIDERS: Visit Provider Obstetrics & Gynecology ==

== ENCOUNTER 2024-09-04 10:16 | Outpatient (REF) | payer BC, SELFPAY ==
[2024-09-05 19:19] LABS: Follicle Stimulating Hormone 72.2 mIU/mL; Lutenizing Hormone 30.2 mIU/mL
== END 2024-09-04 10:17 | disposition home or self-care (01) ==
LOC: HO.LAB 10:16
PROVIDERS: Visit Provider Obstetrics & Gynecology
DX: N91.2 Amenorrhea, unspecified (principal)
CPT/HCPCS: 36415; 83001; 83002

== ENCOUNTER 2024-09-08 15:47 | Outpatient (AMB) | payer BC, SELFPAY ==
--- NOTE | 2024-09-08 15:52 | A.OFFVIS_ITS ---
Vital Signs 09/08/24 15:54 Height 5 ft Weight 166 lb BMI 32.4 Intake Visit Reasons: iud removal Director Of Cardiology Required: No Information Interpreted: non-clinical & clinical Art Glass Setter: Art Glass Setter Present (Delaney Gramajofredrick Vidal) Accompanied by: Self / Same As Patient Allergies No Known Allergies Allergy (Mild, Verified 09/08/24 15:55) UNKNOWN Post menopausal: Yes HPI Comments Details: Presenting for follow-up FSH/LH were 72.2/30.2, the patient is requesting IUD removal PFSH Medical History History of anxiety Surgical History Hx of section Hx of tonsillectomy Social History Household Members: Children Housing: House Alcohol intake: current Alcohol intake frequency: a few times a month Comment: previously medicated with oxycodone and fentanyl Patient Tobacco Use Status: Never used Tobacco Current occupational status: employed 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 Sexual orientation: Straight/Heterosexual Gender identity: Female Review of Systems Const All systems reviewed & are unremarkable except as noted in HPI and below Reports as per HPI and Reports no additional complaints GI Reports no additional complaints Reports no additional complaints Office Procedures IUD Insert/Removal Details Details: Counseling/Consent: After discussing with the patient the risks of the procedure including bleeding, infection, scar tissue formation, , possible injury to blood vessels or nerves, chronic arm pain, blood transfusion, and irregular unpredictable bleeding Alternative options were discussed with the patient including but not limited: Do nothing. The patient signed the consent and agreed with the plan; all questions answered. Urine test was done in the office and was negative Preop dx: IUD removal Op: IUD removal Post op dx: same EBL= 10 cc Procedure: The patient was put in the dorsal lithotomy position a speculum was inserted in the vagina the IUD thread identified. Using a Amy clamp the thread was grasped and the IUD pulled out with no complications. The patient tolerated the procedure well and was advised to use a different method for contraception. Discharge instructions: Instructions were given to the pt to call if temp>100.4, abdominal pain heavy vaginal bleeding, n/v occur. The patient verbalized understanding and all questions answered. This note was generated with a voice recognition program. Some errors may have been overlooked during the review of this note. Sometimes these errors may affect the content or meaning of a given sentence. [id number] Removal Procedure code (CPT) selection complete Assessment & Plan Assessment & Plan (1) Menopause: Code(s): Z78.0 - Asymptomatic menopausal state Category: Medical Plan: Discussed with the patient the results FSH LH are in the menopausal range, recommended IUD removal. Instructions given the patient to call in case of vaginal bleeding will proceed with endometrial sampling to rule out endometrial pathology. All questions answered, the patient verbalized understanding (2) Encounter for IUD removal: Code(s): Z30.432 - Encounter for removal of intrauterine contraceptive device Category: Medical Plan: Mirena IUD removed, see procedure Coding Level of Care Code Est Pt Level 3 (86368) Procedure Only Diagnoses Menopause Z78.0 Encounter for IUD removal Z30.432 CPT Codes Details - CPT: 65957-WEY Removal ([id number])
[2024-09-08 15:54] VITALS: BMI 32.4
== END 2024-09-08 16:05 | disposition home or self-care (01) ==
LOC: HO.HWS 15:47
PROVIDERS: Visit Provider Obstetrics & Gynecology
DX: Z30.432 Encounter for removal of intrauterine contraceptive device (principal); Z78.0 Asymptomatic menopausal state
CPT/HCPCS: 58301

== ENCOUNTER → 2024-09-08 15:47 | Outpatient (BNVA) | payer BC, SELFPAY | PROVIDERS: Visit Provider Obstetrics & Gynecology | DX: Z30.432 Encounter for removal of intrauterine contraceptive device (principal); Z78.0 Asymptomatic menopausal state | CPT/HCPCS: 58301 ==